=== PATIENT | female | born 1995 | race Caucasian/White ===

== ENCOUNTER → 2020-06-27 | Day surgery (SDC) | payer OTHER ==
[~2020-06-27] MED LIST: CYANOCOBAL1000 MCG/1 INJ; CYCLOBENZAPRINE5 MG PO; FLOMAX0.4 MG PO; HYDROCODON-ACE1 EAC4 PO; HYDROXYZINE PO; IBUPROFEN200 MG PO; IBUPROFEN600 MG PO; IBUPROFEN800 MG PO; MACRODANTIN100 MG PO; NAPROSYN500 MG PO; NORCO 7.5-3251 EACH PO; PHENERGAN 25 MG25 M1 PO; SUDAFED 30 MG T30 MG PO; TORADOL 10 MG T10 MG PO; VITAMIN D31250 MCG PO; ZOFRAN 4 MG TAB4 MG PO; ZOFRAN ODT 4 MG4 MG PO; ZOFRAN4 MG PO; ZYRTEC10 MG PO
[2020-06-27 09:32] LABS: HEMOGLOBIN 13.1 gm/dl (12.3-15.3); RED BLOOD COUNT 4.74 M/UL (4.00-5.10); WHITE BLOOD COUNT 9.2 K/UL (4.5-11.0)
== END | disposition home or self-care (01) ==
LOC: OR 08:44
PROVIDERS: Obstetrics & Gynecology
PROC: 0UB24ZZ Excision of Bilateral Ovaries, Percutaneous Endoscopic Approach (ICD-10-PCS; principal; 2020-06-27 12:25)
DX: D27.0 Benign neoplasm of right ovary (principal); D27.1 Benign neoplasm of left ovary; I10 Essential (primary) hypertension; F17.290 Nicotine dependence, other tobacco product, uncomplicated; K21.9 Gastro-esophageal reflux disease without esophagitis; E66.01 Morbid (severe) obesity due to excess calories; F41.8 Other specified anxiety disorders; F41.0 Panic disorder [episodic paroxysmal anxiety]; Z79.899 Other long term (current) drug therapy
CPT/HCPCS: 81001; 84703; 85025; C1769; J0690; J1885; J2001; J2250; J2704; J2710; J3010; J7120